=== PATIENT | female | born 1955 | race Caucasian/White ===

== ENCOUNTER 2018-07-28 21:54 | Emergency (ER) | payer MEDICARE ==
--- NOTE | 2018-07-28 23:10 | RAD ---
LEFT SHOULDER TWO VIEWS: 07/28/18 There is a fracture through the surgical neck of the humerus. Additionally, there appears to be a fra cture of the greater tubercle. There is no dislocation of the head. The AC joint is normal in width. IMPRESSION: Fractures of the surgical neck and greater tubercle of the proximal left humerus. POS: HOME
--- NOTE | 2018-07-28 23:12 | RAD ---
LEFT WRIST TWO VIEWS: 07/28/18 Comparison is made with views of the left hand from 11/25/15. 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 While the carpal bon es are not seen optimally, no gross carpal fractures or acute changes were seen. The metacarpals appe ar intact, but the first metacarpal was not seen completely. IMPRESSION: Limited views but no acute findings. POS: HOME
--- NOTE | 2018-07-28 23:13 | RAD ---
LEFT ANKLE THREE VIEWS 07/28/18 Some soft tissue swelling is present but no fracture was seen. The joint appears intact. A calcaneal spur was noted. Faint calcification of the dorsalis pedis artery is seen. IMPRESSION: No acute bony findings. POS: HOME
== END 2018-07-28 23:08 | disposition home or self-care (01) ==
LOC: BURERS 21:54
DX: S42.215A Unspecified nondisplaced fracture of surgical neck of left humerus, initial encounter for closed fracture (principal); S42.255A Nondisplaced fracture of greater tuberosity of left humerus, initial encounter for closed fracture; S42.302A Unspecified fracture of shaft of humerus, left arm, initial encounter for closed fracture; E11.9 Type 2 diabetes mellitus without complications; E03.9 Hypothyroidism, unspecified; I10 Essential (primary) hypertension; Z79.899 Other long term (current) drug therapy; Z79.82 Long term (current) use of aspirin; Z79.84 Long term (current) use of oral hypoglycemic drugs; W01.0XXA Fall on same level from slipping, tripping and stumbling without subsequent striking against object, initial encounter